=== PATIENT | male | born 1975 | race Caucasian/White ===

== ENCOUNTER 2020-07-08 14:35 | Emergency (ER) | payer SELFPAY ==
[2020-07-08 14:44] VITALS: BMI 31.5
[2020-07-08] MEDS ORDERED: METOCLOPRAMIDE HCL INJECTION 10 MG/2 ML VIAL IVPB ONE (14:53)
[2020-07-08] MEDS ORDERED: ACETAMINOPHEN 1000 MG/100 ML VIAL (NON FORMULARY) IVPB ONE (14:53)
[2020-07-08] MEDS ORDERED: METOCLOPRAMIDE HCL INJECTION 10 MG/2 ML VIAL ONE (14:59)
[2020-07-08] MEDS ORDERED: ACETAMINOPHEN INJECTION 100 ML IVPB ONE (15:00)
[2020-07-08] MEDS ORDERED: SODIUM CHLORIDE 1,000 ML IV STA (15:33)
[2020-07-08 17:32] VITALS: BP 127/77; PULSE 78; TEMP 98.3
== END 2020-07-08 18:31 | disposition home or self-care (01) ==
LOC: JER 14:35
PROC: 3E0337Z Introduction of Electrolytic and Water Balance Substance into Peripheral Vein, Percutaneous Approach (ICD-10-PCS; principal; 2020-07-08)
PROC: 3E033GC Introduction of Other Therapeutic Substance into Peripheral Vein, Percutaneous Approach (ICD-10-PCS; principal; 2020-07-08)
DX: R51.9 Headache, unspecified (principal)
CPT/HCPCS: 70450-TC; 99285-25; J0131

== ENCOUNTER 2021-10-07 10:18 | Emergency (ER) | payer OTHER ==
[2021-10-07 10:26] VITALS: BP 127/75; PULSE 71; TEMP 97.5; BMI 31.5
== END 2021-10-07 17:06 | disposition home or self-care (01) ==
LOC: JERFT 10:18
DX: K64.9 Unspecified hemorrhoids (principal)
CPT/HCPCS: 99284-25

== ENCOUNTER 2022-02-13 17:35 | Emergency (ER) | payer OTHER ==
[2022-02-13 17:40] VITALS: BP 153/84; PULSE 88; RESP 19; TEMP 98.6; BMI 33.0
[2022-02-13] MEDS ORDERED: SODIUM CHLORIDE 0.9% 500 ML INFUS.BAG IV ONE (19:17)
[2022-02-13] MEDS ORDERED: ACETAMINOPHEN 1000 MG/100 ML BAG IVPB ONE ×2 (19:18→19:24)
[2022-02-13] MEDS ORDERED: ACETAMINOPHEN INJECTION 100 ML IVPB ONE (19:25)
[2022-02-13 20:27] LABS: BASO % 0.7 % (0-2.0); EOS % 2.4 % (0-4.5); HEMATOCRIT 32.4 % (35.4-49); HEMOGLOBIN 10.2 GM/dL (11.7-16.9); LYMPH % 27.3 % (8-40); MCH 20.4 pg (25.7-33.7); MCHC 31.4 g/dl (32.0-35.9); MEAN CELL VOLUME 65.1 fl (80-96); MEAN PLT VOLUME 8.4 fl (7.5-11.1); MONO % 11.1 % (3.8-10.2); NEUT % 58.5 % (42.8-82.8); PLATELET COUNT 360 10^3/uL (134-434); RBC 4.98 M/mm3 (4.00-5.60); RDW 21.1 % (11.9-15.9); URINE APPEARANCE CLEAR; URINE BILIRUBIN NEGATIVE (NEGATIVE); URINE COLOR YELLOW; URINE GLUCOSE (UA) NEGATIVE (NEGATIVE); URINE KETONE TRACE (NEGATIVE); URINE LEUK ESTERASE NEGATIVE (NEGATIVE); URINE NITRITE NEGATIVE (NEGATIVE); URINE PROTEIN NEGATIVE (NEGATIVE); WHITE BLOOD COUNT 7.4 K/mm3 (4.0-10.0)
[2022-02-13] MEDS ORDERED: LACTULOSE 20 GM/30 ML UDC (FOR ORAL USE ONLY) PO ONE (20:30)
[2022-02-13 20:41] LABS: CALCIUM 8.7 mg/dL (8.5-10.1)
[2022-02-13 20:42] LABS: ALBUMIN 3.7 g/dl (3.4-5.0); BLOOD UREA NITROGEN 13.5 mg/dL (7-18)
[2022-02-13] MEDS ORDERED: DICYCLOMINE HCL 20 MG TABLET PO ONE (20:42)
[2022-02-13] MEDS ORDERED: MAG HYDROX/AL HYDROX/SIMETH 30 ML UNIT-DOSE CUP PO ONE (20:42)
[2022-02-13 20:45] LABS: CREATININE 0.9 mg/dL (0.55-1.3)
[2022-02-13 20:47] LABS: BILIRUBIN,TOTAL 0.2 mg/dL (0.2-1); TOT PROT 7.1 g/dl (6.4-8.2)
[2022-02-13] MEDS ORDERED: MAG HYDROX/AL HYDROX/SIMETH 30 ML UNIT-DOSE CUP ONE (20:47)
[2022-02-13] MEDS ORDERED: LACTULOSE 20 GM/30 ML UDC (FOR ORAL USE ONLY) ONE ×2 (20:47→20:52)
[2022-02-13] MEDS ORDERED: DICYCLOMINE HCL 10 MG CAPSULE ONE (20:47)
[2022-02-13 20:52] LABS: ANISOCYTOSIS 2+; MACROCYTOSIS 0; OVALOCYTE 1+; TARGET CELLS 1+
[2022-02-13] MEDS ORDERED: morphine CARPU-JECT 4 MG/1 ML DISP.SYRIN IVPUSH ONE (21:28)
[2022-02-13] MEDS ORDERED: morphine SULFATE 4 MG/ML VIAL ONE (21:35)
== END 2022-02-14 00:55 | disposition home or self-care (01) ==
LOC: JER 17:35
PROC: 3E033GC Introduction of Other Therapeutic Substance into Peripheral Vein, Percutaneous Approach (ICD-10-PCS; principal; 2022-02-13)
DX: R14.0 Abdominal distension (gaseous) (principal); D64.9 Anemia, unspecified; R10.31 Right lower quadrant pain
CPT/HCPCS: 36415; 74177-TC; 80053; 81003; 85025; 87086; 99285-25; Q9967

== ENCOUNTER 2022-04-27 07:26 | Emergency (ER) | payer OTHER ==
[2022-04-27 07:34] VITALS: BP 144/92; PULSE 78; RESP 18; TEMP 97.9; BMI 27.2
[2022-04-27] MEDS ORDERED: ACETAMINOPHEN 500 MG TABLET (FP) PO ONE (07:42)
[2022-04-27] MEDS ORDERED: METOCLOPRAMIDE HCL 10 MG TABLET (FP) PO ONE (07:42)
[2022-04-27] MEDS ORDERED: METOCLOPRAMIDE HCL INJECTION 10 MG/2 ML VIAL ONE (07:48)
[2022-04-27] MEDS ORDERED: ACETAMINOPHEN INJECTION 100 ML IVPB ONE (07:48)
[2022-04-27] MEDS ORDERED: LACTATED RINGERS SOLUTION 1000 ML INFUS.BAG IV ONE (07:49)
[2022-04-27] MEDS ORDERED: ACETAMINOPHEN 1000 MG/100 ML BAG IVPB ONE (08:05)
[2022-04-27] MEDS ORDERED: METOCLOPRAMIDE HCL INJECTION 10 MG/2 ML VIAL IVPUSH ONE (08:06)
[2022-04-27] MEDS ORDERED: KETOROLAC TROMETHAMINE 15 MG/ML VIAL IVPUSH ONE (09:11)
[2022-04-27] MEDS ORDERED: KETOROLAC TROMETHAMINE 15 MG/ML VIAL ONE (09:55)
[2022-04-27] MEDS ORDERED: DEXAMETHASONE SOD PHOSPHATE 10 MG/1 ML VIAL IVPUSH ONE (10:27)
[2022-04-27] MEDS ORDERED: SUMAtriptan SUCCINATE 25 MG TABLET PO ONE (10:28)
[2022-04-27] MEDS ORDERED: DEXAMETHASONE SOD PHOSPHATE 10 MG/1 ML VIAL ONE (10:38)
[2022-04-27] MEDS ORDERED: SUMAtriptan SUCCINATE 50 MG TABLET ONE ×2 (10:38→10:42)
== END 2022-04-27 12:34 | disposition home or self-care (01) ==
LOC: JER 07:26
PROC: 3E033GC Introduction of Other Therapeutic Substance into Peripheral Vein, Percutaneous Approach (ICD-10-PCS; principal; 2022-04-27)
DX: R51.9 Headache, unspecified (principal)
CPT/HCPCS: 0241U-QW; 70450-TC; 99285-25; J1100

== ENCOUNTER 2022-06-15 14:41 | Emergency (ER) | payer OTHER ==
[2022-06-15 14:58] VITALS: BP 136/74; PULSE 93; RESP 20; TEMP 98.1; BMI 33.0
[2022-06-15 18:30] LABS: HEMATOCRIT 31.1 % (35.4-49); HEMOGLOBIN 10.3 GM/dL (11.7-16.9); MCH 24.3 pg (25.7-33.7); MCHC 33.2 g/dl (32.0-35.9); MEAN CELL VOLUME 73.1 fl (80-96); MEAN PLT VOLUME 8.6 fl (7.5-11.1); PLATELET COUNT 295 10^3/uL (134-434); RBC 4.26 M/mm3 (4.00-5.60); RDW 23.9 % (11.9-15.9); WHITE BLOOD COUNT 7.4 K/mm3 (4.0-10.0)
[2022-06-15 18:46] LABS: ALBUMIN 3.7 g/dl (3.4-5.0); BLOOD UREA NITROGEN 9.5 mg/dL (7-18); CALCIUM 8.4 mg/dL (8.5-10.1)
[2022-06-15 18:49] LABS: CREATININE 0.8 mg/dL (0.55-1.3)
[2022-06-15 18:51] LABS: BILIRUBIN,TOTAL 0.3 mg/dL (0.2-1)
[2022-06-15 18:52] LABS: TOT PROT 6.8 g/dl (6.4-8.2)
== END 2022-06-15 19:15 | disposition home or self-care (01) ==
LOC: JER 14:41
DX: K60.0 Acute anal fissure (principal); K62.5 Hemorrhage of anus and rectum
CPT/HCPCS: 36415; 80053; 85027; 99283-25

== ENCOUNTER 2023-04-10 13:52 | Emergency (ER) | payer OTHER ==
[2023-04-10 13:59] VITALS: BP 134/76; PULSE 99; RESP 18; TEMP 98.7; BMI 31.5
[2023-04-10] MEDS ORDERED: LACTATED RINGERS SOLUTION 1000 ML INFUS.BAG IV ONE (14:41)
[2023-04-10] MEDS ORDERED: ACETAMINOPHEN 1000 MG/100 ML BAG IVPB ONE (14:41)
[2023-04-10] MEDS ORDERED: METOCLOPRAMIDE HCL INJECTION 10 MG/2 ML VIAL IVPB ONE (14:41)
[2023-04-10] MEDS ORDERED: METOCLOPRAMIDE HCL INJECTION 10 MG/2 ML VIAL ONE (14:47)
[2023-04-10] MEDS ORDERED: ACETAMINOPHEN INJECTION 100 ML IVPB ONE (14:47)
[2023-04-10 15:18] LABS: HEMATOCRIT 35.8 % (35.4-49); HEMOGLOBIN 11.4 GM/dL (11.7-16.9); MCH 20.7 pg (25.7-33.7); MCHC 31.8 g/dl (32.0-35.9); MEAN CELL VOLUME 65.1 fl (80-96); MEAN PLT VOLUME 8.7 fl (7.5-11.1); PLATELET COUNT 317 10^3/uL (134-434); RDW 22.1 % (11.9-15.9); WHITE BLOOD COUNT 9.6 K/mm3 (4.0-10.0)
[2023-04-10 15:39] LABS: POTASSIUM 3.9 mmol/L (3.5-5.1)
[2023-04-10 15:40] LABS: CALCIUM 8.3 mg/dL (8.5-10.1)
[2023-04-10 15:41] LABS: ALBUMIN 3.5 g/dl (3.4-5.0); BLOOD UREA NITROGEN 9.7 mg/dL (7-18); MAGNESIUM 2.2 mg/dL (1.8-2.4)
[2023-04-10 15:44] LABS: CREATININE 0.9 mg/dL (0.55-1.3)
[2023-04-10 15:46] LABS: BILIRUBIN,TOTAL 0.3 mg/dL (0.2-1); TOT PROT 6.8 g/dl (6.4-8.2)
== END 2023-04-10 16:20 | disposition home or self-care (01) ==
LOC: JER 13:52
PROC: 3E033NZ Introduction of Analgesics, Hypnotics, Sedatives into Peripheral Vein, Percutaneous Approach (ICD-10-PCS; principal; 2023-04-10)
PROC: 3E033GC Introduction of Other Therapeutic Substance into Peripheral Vein, Percutaneous Approach (ICD-10-PCS; 2023-04-10)
DX: R20.2 Paresthesia of skin (principal); R51.9 Headache, unspecified; R68.2 Dry mouth, unspecified; R00.0 Tachycardia, unspecified; G43.909 Migraine, unspecified, not intractable, without status migrainosus
CPT/HCPCS: 36415; 70450-TC; 80053; 83735; 85027; 93005; 93010; 99285-25

== ENCOUNTER 2024-01-10 00:27 | Observation (INO) | payer OTHER ==
[2024-01-10 00:34] VITALS: BMI 31.5
[2024-01-10] MEDS: SODIUM CHLORIDE 1,000 ML IV SCH (02:26)
[2024-01-10 02:32] LABS: BASO % 0.4 % (0-2.0); HEMATOCRIT 43.6 % (35.4-49); HEMOGLOBIN 14.5 GM/dL (11.7-16.9); LYMPH % 11.9 % (8-40); MCH 27.4 pg (25.7-33.7); MCHC 33.3 g/dl (32.0-35.9); MEAN CELL VOLUME 82.2 fl (80-96); MONO % 2.6 % (3.8-10.2); NEUT % 85.1 % (42.8-82.8); PLATELET COUNT 258 10^3/uL (134-434); RDW 16.9 % (11.9-15.9); WHITE BLOOD COUNT 8.9 K/mm3 (4.0-10.0)
[2024-01-10 02:38] LABS: INR 1.03 (0.83-1.09); PROTHROMBIN TIME (PATIENT) 11.6 SEC (9.7-13.0)
[2024-01-10 02:54] LABS: POTASSIUM 4.1 mmol/L (3.5-5.1)
[2024-01-10 02:56] LABS: ALBUMIN 4.1 g/dl (3.4-5.0); CALCIUM 9.2 mg/dL (8.5-10.1)
[2024-01-10 03:00] LABS: CREATININE 0.9 mg/dL (0.55-1.3)
[2024-01-10 03:01] LABS: TOT PROT 7.6 g/dl (6.4-8.2)
[2024-01-10 03:02] LABS: BILIRUBIN,TOTAL 0.6 mg/dL (0.2-1)
[2024-01-10 06:48] LABS: URINE APPEARANCE Clear; URINE BILIRUBIN Negative (NEGATIVE); URINE COLOR Yellow; URINE GLUCOSE (UA) Negative (NEGATIVE); URINE KETONE Negative (NEGATIVE); URINE LEUK ESTERASE Negative (NEGATIVE); URINE NITRITE Negative (NEGATIVE); URINE PROTEIN Negative (NEGATIVE)
[2024-01-10] MEDS ORDERED: ASPIRIN COATED 81 MG TABLET.EC ONE (11:10)
[2024-01-10] MEDS ORDERED: ACETAMINOPHEN 325 MG TABLET (FP) ONE (11:11)
[2024-01-10] MEDS ORDERED: CLOPIDOGREL BISULFATE 75 MG TABLET (FP) ONE (11:11)
[2024-01-10] MEDS: CLOPIDOGREL BISULFATE 75 MG TABLET (FP) PO SCH (11:21)
[2024-01-10] MEDS: METHIMAZOLE 10 MG TABLET PO SCH (11:21)
[2024-01-10] MEDS: ASPIRIN COATED 81 MG TABLET.EC PO SCH (11:21)
[2024-01-10] MEDS: ACETAMINOPHEN 325 MG TABLET (FP) PO PRN (12:08)
[2024-01-10] MEDS ORDERED: ENOXAPARIN NA (PORCINE) 40 MG/0.4 ML DISP.SYRIN SQ ONE (16:39)
[2024-01-10] MEDS: ENOXAPARIN NA (PORCINE) 40 MG/0.4 ML DISP.SYRIN SQ SCH (16:48)
[2024-01-10] MEDS: ATORVASTATIN CA 40 MG TABLET (FP) PO SCH (22:36)
[2024-01-11 07:51] LABS: BASO % 0.3 % (0-2.0); EOS % 0.1 % (0-4.5); HEMATOCRIT 39.9 % (35.4-49); HEMOGLOBIN 13.3 GM/dL (11.7-16.9); MCH 27.9 pg (25.7-33.7); MCHC 33.4 g/dl (32.0-35.9); MEAN CELL VOLUME 83.4 fl (80-96); MEAN PLT VOLUME 9.1 fl (7.5-11.1); MONO % 7.8 % (3.8-10.2); NEUT % 62.8 % (42.8-82.8); PLATELET COUNT 234 10^3/uL (134-434); RBC 4.78 M/mm3 (4.00-5.60); RDW 16.8 % (11.9-15.9); WHITE BLOOD COUNT 12.4 K/mm3 (4.0-10.0)
[2024-01-11 08:15] LABS: POTASSIUM 3.6 mmol/L (3.5-5.1)
[2024-01-11 08:34] LABS: ALBUMIN 3.7 g/dl (3.4-5.0); BLOOD UREA NITROGEN 13.6 mg/dL (7-18); CALCIUM 8.5 mg/dL (8.5-10.1)
[2024-01-11 08:35] LABS: MAGNESIUM 2.2 mg/dL (1.8-2.4)
[2024-01-11 08:37] LABS: CREATININE 0.9 mg/dL (0.55-1.3); PHOSPHOROUS 3.8 mg/dL (2.5-4.9)
[2024-01-11 08:39] LABS: BILIRUBIN,TOTAL 0.4 mg/dL (0.2-1); TOT PROT 6.5 g/dl (6.4-8.2)
[2024-01-11] MEDS ORDERED: AMITRIPTYLINE HCL 25 MG TABLET PO SCH (13:21)
[2024-01-11] MEDS ORDERED: amLODIPine BESYLATE 5 MG TABLET (FP) PO SCH (13:30)
[2024-01-11 18:55] VITALS: BP 129/85; PULSE 64; RESP 18; TEMP 98.1
[2024-01-11] MEDS ORDERED: GABAPENTIN 300 MG CAPSULE PO SCH (22:00)
[2024-01-12] MEDS ORDERED: amLODIPine BESYLATE 5 MG TABLET (FP) PO SCH (10:00)
[2024-01-12] MEDS ORDERED: AMITRIPTYLINE HCL 25 MG TABLET PO SCH (10:00)
== END 2024-01-11 18:59 | disposition home or self-care (01) ==
LOC: JER 00:27 → JERBED 04:59 → J4S 17:04
PROVIDERS: ADMIT Internal Medicine; ATTEND Internal Medicine
PROC: 3E023GC Introduction of Other Therapeutic Substance into Muscle, Percutaneous Approach (ICD-10-PCS; principal; 2024-01-10)
PROC: 3E0337Z Introduction of Electrolytic and Water Balance Substance into Peripheral Vein, Percutaneous Approach (ICD-10-PCS; 2024-01-10)
DX: M54.10 Radiculopathy, site unspecified (principal); Z98.890 Other specified postprocedural states; E07.9 Disorder of thyroid, unspecified; I10 Essential (primary) hypertension; E78.5 Hyperlipidemia, unspecified; E03.9 Hypothyroidism, unspecified; F41.8 Other specified anxiety disorders
CPT/HCPCS: 36415; 70450-TC; 70496-TC; 70498-TC; 70551-TC; 72125-TC; 80053; 80061; 81003; 82550; 83036; 83735; 84100; 84443; 84484; 85025; 85610; 85651; 85730; 86140; 86850; 86900; 86901; 93005; 93010; 97116-GP; 97161-GP; 99291; G0378